=== PATIENT | male | born 1950 | race Caucasian/White ===

== ENCOUNTER 2016-08-11 05:44 | Emergency (ER) | payer OTHER ==
[~2016-08-11] VITALS: Ht 162.6 cm; Wt 86.2 kg
[~2016-08-11 05:44] MED LIST: LISI-420 PO; METF500T PO
[2016-08-11 05:56] VITALS: BP 157/96
--- NOTE | 2016-08-11 06:03 | NUR ---
PT TAKEN TO BED 5
--- NOTE | 2016-08-11 06:13 | NUR ---
Dr. Glass evaluating patient at bedside.
[2016-08-11] MEDS ORDERED: DIAZEPAM 5 MG TAB PO ONE (06:15)
[2016-08-11] MEDS ORDERED: MORPHINE SULFATE 4 MG/ML SYR IVP ONE ×2 (06:15→08:10)
[2016-08-11] MEDS ORDERED: NACL 0.9% 1,000 ML IV ONE (06:15)
--- NOTE | 2016-08-11 06:15 | NUR ---
66 y/o m w/c/o lower back pain x 7 days. pt states unable to ambulate with assistance. ingrid lynn made aware.
[2016-08-11 06:35] LABS: BASOPHILS # (AUTO) 0.1 K/uL (0.00-0.22); BASOPHILS % (AUTO) 1.7 % (0.0-2.0); EOSINOPHILS # (AUTO) 0.2 K/uL (0-0.4); EOSINOPHILS % (AUTO) 2.4 % (0.0-4.0); HEMATOCRIT 49.4 % (36-52); HEMOGLOBIN 16.8 g/dL (12.0-18.0); LYMPHOCYTES # (AUTO) 1.6 K/uL (2.0-11.5); LYMPHOCYTES % (AUTO) 21.1 % (20.5-51.1); MEAN CORPUSCULAR HEMOGLOBIN 32 pg (27-31); MEAN CORPUSCULAR HGB CONC 34 g/dL (33-37); MEAN CORPUSCULAR VOLUME 95 fL (80-94); MONOCYTES # (AUTO) 0.6 K/uL (0.8-1.0); MONOCYTES % (AUTO) 8.1 % (1.7-9.3); NEUTROPHILS # (AUTO) 5.1 K/uL (1.8-7.7); NEUTROPHILS % (AUTO) 66.7 % (42.2-75.2); PLATELET COUNT (AUTO) 249 K/uL (140-450); RED BLOOD CELL COUNT(AUTO) 5.21 MIL/uL (4.20-6.10); RED CELL DISTRIBUTION WIDTH 12.2 % (11.6-13.7); WHITE BLOOD COUNT (AUTO) 7.6 K/uL (4.8-10.8)
[2016-08-11 06:46] LABS: ANION GAP 12.9 (8-16); CALCIUM 9.1 mg/dL (8.5-10.1); CARBON DIOXIDE 28.9 mmol/L (21-32); CREATININE 0.9 mg/dL (0.6-1.3); POTASSIUM 3.8 mmol/L (3.5-5.1)
[2016-08-11 06:52] LABS: ALBUMIN 4.1 g/dL (3.4-5.0); TOTAL BILIRUBIN 0.5 mg/dL (0.0-1.0); TOTAL PROTEIN, SERUM 8.2 g/dL (6.4-8.2)
--- NOTE | 2016-08-11 07:02 | NUR ---
Pt report given to ROSARIO BOTELLO. Transfer of care at this time.
--- NOTE | 2016-08-11 07:22 | NUR ---
PT TAKEN TO CT VIA [facility], ACCOMPANIED BY PUMP ROOM OPERATOR.
--- NOTE | 2016-08-11 07:41 | NUR ---
Patient brought back from CT and placed back into bed 5.
--- NOTE | 2016-08-11 09:10 | NUR ---
IV removed TO LEFT A/C 20G, catheter intact and site benign. Applied folded 4x4 gauze and tape to stop bleeding. PT TOLERATED PROCEDURE WELL.
[2016-08-11 09:12] VITALS: BP 153/92
--- NOTE | 2016-08-11 09:12 | NUR ---
Patient discharged with v/s stable. Written and verbal after care instructions given and explained. Patient alert, oriented and verbalized understanding of instructions. Ambulatory with steady gait. All questions addressed prior to discharge. ID band removed. Patient advised to follow up with PMD. Rx of NORCO 5MG-325MG TAB given. Patient educated on indication of medication including possible reaction and side effects. Opportunity to ask questions provided and answered.
== END 2016-08-11 09:12 | disposition home or self-care (01) ==
LOC: MED 05:44
DX: M48.06 Spinal stenosis, lumbar region (principal); M25.78 Osteophyte, vertebrae; M47.9 Spondylosis, unspecified; I10 Essential (primary) hypertension; E11.9 Type 2 diabetes mellitus without complications
CPT/HCPCS: 36415; 72131; 74177; 80053; 81002; 85025; 96361; 96374; 96376; 99285; J2270; Q9967